=== PATIENT | male | born 1965 | race Caucasian/White ===

== ENCOUNTER → 2016-10-12 | Outpatient (CLI) | payer OTHER | LOC: CT 10-11 10:00 → KOH-I 10:00 → CT 10:30 | DX: C34.90 Malignant neoplasm of unspecified part of unspecified bronchus or lung (principal); C79.51 Secondary malignant neoplasm of bone; J91.0 Malignant pleural effusion; I31.3 Pericardial effusion (noninflammatory) | CPT/HCPCS: 71260; 74177; Q9962 ==